=== PATIENT | female | born 2000 | race Caucasian/White ===

== ENCOUNTER 2019-05-30 10:38 | Day surgery (SDC) | payer BC ==
[2019-05-30] MEDS ORDERED: Bupivacaine/Epinephrine 0.25% 30 ML VIAL ONE (11:05)
[2019-05-30] MEDS ORDERED: Midazolam HCl 2 mg/2 ml Vial ONE (11:20)
[2019-05-30] MEDS ORDERED: Fentanyl 100 MCG/2 ML VIAL ONE (11:20)
[2019-05-30] MEDS ORDERED: Ketorolac Tromethamine 30 MG/ML VIAL ONE (11:27)
[2019-05-30] MEDS ORDERED: Dexamethasone 20 MG/5 ML VIAL ONE (11:27)
[2019-05-30] MEDS ORDERED: Glycopyrrolate 0.2 MG/ML 5 ML SYRINGE ONE (11:27)
[2019-05-30] MEDS ORDERED: PROPOFOL 200 MG/20 ML VIAL ONE (11:27)
[2019-05-30] MEDS ORDERED: Ondansetron PF 4 MG/2 ML Vial ONE (11:27)
[2019-05-30] MEDS ORDERED: Lidocaine 1% PF 5 ML VIAL ONE (11:27)
[2019-05-30] MEDS ORDERED: Rocuronium Bromide 10 MG/ML (10ML VIAL) ONE (11:27)
--- NOTE | 2019-05-30 11:59 | HP ---
HISTORY OF PRESENT ILLNESS: This is a 19-year-old woman, who presented to our stand-alone emergency department this morning complaining of insidious onset periumbilical abdominal pain, which started yesterday and soon settled in the right lower quadrant where it has persisted. The pain was associated with nausea and nonbilious emesis. She did have one bout of diarrhea. The patient denies any fevers or chills. She took some [id number] remedies without any relief. Pain is described as sharp, radiating to her back and rated at 8 to 9/10. PAST MEDICAL HISTORY: Pertinent for asthma, which is now exercise induced. PAST SURGICAL HISTORY: Pertinent for ORIF of left forearm fracture at age 5 and also childhood tonsillectomy and adenoidectomy. 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 She denies any cigarette smoking or illicit drug abuse. She admits to occasional intake of ethanol in moderate amounts. FAMILY HISTORY: Notable for essential hypertension in her father and grandfather. Various members of extended family from her father's side have cancer including colon cancer and prostatic carcinoma. There is family history of various members of both sides of her family with heart disease. Great grandmother has diabetes mellitus. PREHOSPITALIZATION MEDICATIONS: None. ALLERGIES: TO WELLBUTRIN. REVIEW OF SYSTEMS: Ten-point review of systems essentially unremarkable except as stated in past medical history and chief complaint. PHYSICAL EXAMINATION: GENERAL: This reveals a 19-year-old normally developed woman, who is otherwise coherent and interactive and appears stated age. The patient is alert and oriented x3. She appears to be in no acute distress at time of my evaluation. VITAL SIGNS: Include blood pressure 125/64, pulse 104, respiratory rate is 18, temperature 100.6 degrees Fahrenheit, and oxygen saturation 98% on room air. HEENT: Reveals normocephalic and atraumatic. Pupils are equal, round, and reactive to light and accommodation. She has no scleral icterus present. HEART: Reveals regular rate with sinus tachycardia. No murmurs or gallops auscultated. LUNGS: Clear to auscultation bilaterally. Breathing, regular and nonlabored. ABDOMEN: Soft and distended. She has right lower quadrant tenderness to palpation. She has a positive Rovsing sign. Liver and spleen are otherwise nonpalpable below costal margin. EXTREMITIES: Reveal 2+ radial and pedal pulses bilaterally. No ankle edema is present. NEUROLOGIC: Reveals no focal deficits present. LABORATORY STUDIES: Pertinent and complete laboratory studies from [facility] incudes CBC with 21,400 white blood cells, hemoglobin and hematocrit are 13.1 and 37.2 respectively. Platelet count is 218,000. Metabolic profile; sodium 143, potassium 3.7, chloride is 103, bicarb is 27, BUN is 14, creatinine is 1.0. AST and ALT are both normal at 23 and 14 respectively. Total bilirubin is normal at 1.0. Urinalysis is essentially unremarkable. I have also personally reviewed accompanying CT scan of the abdomen pelvis from [facility], which is remarkable for dilated appendix with periappendiceal fat stranding. No pneumoperitoneum or evidence of abscess is present. IMPRESSIONS: 1. Acute appendicitis. 2. History of asthma. PLAN: Laparoscopic appendectomy. The above findings and plan to have been discussed with the patient and her family at bedside. I have also informed the patient of the risks and benefits of the proposed surgery to include, but are not limited to bleeding, infection, injury to bowel or surrounding structures. This information is given to the patient in the presence of her family and her nurse present at bedside. The patient has indicated understanding of information given. I have answered her questions. The patient has granted consent for this admission and surgical intervention. Job ID: [id number]
--- NOTE | 2019-05-30 13:14 | OP ---
DATE OF PROCEDURE: 05/30/2019 PREOPERATIVE DIAGNOSIS: Acute appendicitis. POSTOPERATIVE DIAGNOSIS: Acute appendicitis. OPERATION PERFORMED: Laparoscopic appendectomy. ANESTHESIA: General endotracheal. ESTIMATED BLOOD LOSS: 5 mL. FLUIDS GIVEN: 1000 mL of crystalloids. COUNTS: Sponge and instrument counts were verified as correct x2. COMPLICATIONS: None apparent at the time of operation. INDICATIONS FOR OPERATION: A 19-year-old woman, presented with 24-hour history of insidious onset periumbilical abdominal pain, which settled in the right lower quadrant. Clinical radiographic examination was consistent with acute appendicitis, for which the patient was brought to the operating room for appendectomy. Findings are consistent with suppurative, but nonperforated appendix. DESCRIPTION OF PROCEDURE: Informed consent was obtained from the patient. She was brought to the operating room and placed in supine position. Following general anesthesia, abdomen was sterilely prepped and draped in usual fashion. The skin below the umbilicus was infiltrated with 0.25% Marcaine with epinephrine. A small curvilinear infraumbilical incision was made using 11 scalpel. Umbilical stalk was grasped with Anca and elevated. Veress needle was inserted through the incision, placed in the peritoneal cavity through which the abdomen was insufflated with 3 L of CO2 gas. Intraabdominal pressure was noted at 2 mmHg. Following abdominal insufflation, Veress needle was removed and a 5-mm trocar was introduced using a Visiport under laparoscopy. Laparoscopy confirmed proper placement of the port, no injuries to underlying structures. Additional laparoscopy revealed right lower quadrant partially encased by omental adhesions. Under direct laparoscopy, 5-mm suprapubic and left lower quadrant port were placed after the overlying skin was infiltrated 0.25% Marcaine with epinephrine and appropriate incision was made. The patient was placed in a Trendelenburg position, rotated to her left. I introduced Prestige grasper through the left lower quadrant port site using this to bluntly take down omental adhesions to expose suppurative dilated appendix in the usual anatomic location. Prestige grasper was introduced through the suprapubic port site grasping the appendix, which was elevated. The use of LigaSure device to serially divide the mesoappendix down to the base with good hemostasis. Appendix itself was divided at the appendiceal-cecal junction between endo-loop. Appendix was delivered off the abdominal cavity using an EndoCatch. Operative site was inspected for good hemostasis. Finding no other pathology, laparoscopy was terminated. The abdomen was desufflated. All ports and instruments were removed and accounted for. Skin incisions were closed using 4-0 Monocryl suture in subcuticular fashion. Dermabond was applied over incisional closure. The patient tolerated the operation without any apparent complication and was returned to the recovery room in satisfactory condition. Job ID: [id number]
== END 2019-05-30 13:40 | disposition home or self-care (01) ==
LOC: SDC 10:38
PROVIDERS: ATTEND Surgery
PROC: 0DTJ4ZZ Resection of Appendix, Percutaneous Endoscopic Approach (ICD-10-PCS; principal; 2019-05-30)
DX: K35.80 Unspecified acute appendicitis (principal); J45.909 Unspecified asthma, uncomplicated; Z88.8 Allergy status to other drugs, medicaments and biological substances
CPT/HCPCS: 88304; J0690; J2250; J3010